=== PATIENT | female | born 1940 | race Caucasian/White ===

== ENCOUNTER 2018-03-27 10:20 | Day surgery (SDC) | payer OTHER, BC ==
[2018-03-23 12:25] VITALS: BMI 25.4
[2018-03-27] MEDS ORDERED: PROPOFOL 20 ML ONE ×2 (11:39)
[2018-03-27 12:54] VITALS: TEMP 97.7
[2018-03-27 13:16] VITALS: BP 102/54; PULSE 62
== END 2018-03-27 13:20 | disposition home or self-care (01) ==
LOC: FASU-ENDO 10:20
PROVIDERS: ATTEND Internal Medicine Gastroenterology
PROC: 0DJD8ZZ Inspection of Lower Intestinal Tract, Via Natural or Artificial Opening Endoscopic (ICD-10-PCS; principal; 2018-03-27 12:11)
DX: Z12.11 Encounter for screening for malignant neoplasm of colon (principal); K57.30 Diverticulosis of large intestine without perforation or abscess without bleeding; Z98.0 Intestinal bypass and anastomosis status; K64.4 Residual hemorrhoidal skin tags; K64.8 Other hemorrhoids

== ENCOUNTER 2018-06-25 13:01 | Emergency (ER) | payer OTHER, BC ==
[2018-06-25 13:22] VITALS: TEMP 98.3
[2018-06-25 13:27] VITALS: BP 127/74; PULSE 65; BMI 24.5
[2018-06-25 13:57] LABS: BASO % 0.8 % (0-2.0); EOS % 3.9 % (0-4.5); HEMATOCRIT 42.8 % (32.4-45.2); HEMOGLOBIN 14.2 GM/dl (10.7-15.3); LYMPH % 27.9 % (8-40); MCH 29.7 pg (25.7-33.7); MCHC 33.3 g/dl (32.0-36.0); MEAN CELL VOLUME 89.1 fl (80-96); MEAN PLT VOLUME 9.1 fl (7.5-11.1); MONO % 8.6 % (3.8-10.2); NEUT % 58.8 % (42.8-82.8); PLATELET COUNT 217 K/MM3 (134-434); WHITE BLOOD COUNT 7.2 K/mm3 (4.0-10.8)
[2018-06-25 14:11] LABS: ALBUMIN 3.9 g/dl (3.5-5.0); ALK PHOS 95 U/L (32-92); ANION GAP 8 MMOL/L (8-16); BILIRUBIN,TOTAL 0.4 mg/dl (0.2-1.0); BLOOD UREA NITROGEN 20 mg/dl (7-18); CHLORIDE 101 mmol/L (98-107); CO2 28 mmol/L (22-28); CREATININE 0.9 mg/dl (0.6-1.3); GLUCOSE,RANDOM 95 mg/dl (74-106); POTASSIUM 3.8 mmol/L (3.5-5.1); SGOT/AST 53 U/L (10-42); SGPT/ALT 39 U/L (10-40); SODIUM 137 mmol/L (136-145); TOT PROT 6.7 g/dl (6.4-8.3)
--- NOTE | 2018-06-25 15:13 | PDOC ---
History of Present Illness - General Chief Complaint: Pain Stated Complaint: RIGHT LEG/FOOT PAIN History Source: Patient Exam Limitations: No Limitations - History of Present Illness Initial Comments: 06/25/18 15:09 78 yo F with h/o pacer, ( complicated by ptx, and scarring to rib ) htn gout here today c/o right ankle pain and swelling. pt stated started in ankle joint, then spread up leg. denies f/c no cut. no h/o pe or dvt. does report intermittent chest pain which she attributes to her scarring from a chest tube after iatrogenic ptx many years ago. states chest pain is worse with lying on her left side. no sob. no travel. went to urgent care and was sent to ed for evaluation. Past History - Past Medical History Allergies/Adverse Reactions: Allergies Allergy/AdvReac Type Severity Reaction Status Date / Time amoxicillin [Amoxicillin] Allergy Verified 06/25/18 13:07 bimatoprost [From Lumigan] Allergy Verified 06/25/18 13:07 levofloxacin [From Levaquin] Allergy Verified 06/25/18 13:07 metoclopramide HCl Allergy Verified 06/25/18 13:07 [From Reglan] nabumetone [From Relafen] Allergy Angioedema Verified 06/25/18 13:07 omeprazole Allergy Verified 06/25/18 13:07 pantoprazole sodium Allergy Verified 06/25/18 13:07 [From Protonix] Sulfa (Sulfonamide Allergy Verified 06/25/18 13:07 Antibiotics) famotidine [From Pepcid] AdvReac Severe Itching Verified 06/25/18 13:07 segrid Allergy nausea Uncoded 06/25/18 13:07 Home Medications: Ambulatory Orders RX: Cyclosporine [Restasis] 1 each OU BID 02/05/13 RX: Brinzolamide/Brimonidine Tart [Simbrinza 1%-0.2% Eye Drops] 8 ml OS BID 06/19 RX: Aspirin [Aspir 81] 81 mg PO TIW 03/17/15 RX: Red Yeast Rice Extract [Red Yeast Rice] 600 mg PO QOD capsule 04/22/17 RX: Ranitidine HCl [Zantac] 150 mg PO DAILY PRN 03/23/18 Atenolol [Tenormin] 12.5 mg PO BID 06/25/18 RX: Clindamycin [Cleocin -] 300 mg PO TID #21 capsule MDD 3 06/25/18 Anemia: No Asthma: No Cancer: No Cardiac Disorders: Yes (? ATRIAL FIB,SVT? PACEMAKER X 10 YEARS) CVA: No COPD: No CHF: No Dementia: No Diabetes: No GI Disorders: Yes (DIVERTICULITIS --RESECTION 2000) Disorders: No HTN: No Hypercholesterolemia: Yes (ON RED YEAST RICE,CAN'T TAKE LIPITOR) Liver Disease: No Seizures: No Thyroid Disease: No - Surgical History Abdominal Surgery: Yes (COLON RESECTION 2000) Appendectomy: No Cardiac Surgery: No Cholecystectomy: No Lung Surgery: No Neurologic Surgery: No Orthopedic Surgery: No - Immunization History Immunization Up to Date: Yes - Suicide/Smoking/Psychosocial Hx Smoking History: Never smoked Have you smoked in the past 12 months: No Hx Alcohol Use: No Drug/Substance Use Hx: No Substance Use Type: None Hx Substance Use Treatment: No Review of Systems - Review of Systems Constitutional: No: Chills, Diaphoresis, Fever Respiratory: No: Orthopnea, Shortness of Breath Cardiac (ROS): Yes: Chest Pain Musculoskeletal: Yes: Joint Pain, Joint Swelling Integumentary: No: Bruising, Change in Color Neurological: No: Headache, Numbness All Other Systems: Reviewed and Negative *Physical Exam - Vital Signs Last Vital Signs Temp Pulse Resp BP Pulse Ox 98.3 F 65 16 127/74 100 06/25/18 13:03 06/25/18 13:03 06/25/18 13:03 06/25/18 13:03 06/25/18 13:03 - Physical Exam Comments: 06/25/18 15:11 awake alert lung clear bilaterally anterior chest wall ttp. no step off, no creitus. no bruising. heart rrr no mrg abd soft nt nd. ext wwp. right lower ext ankle mild erythema medial ankle, and 2 in up calf. ttp. foot 2 + dp/ pt pulses bilaterally. skin otherwise warm and dry. nadya dunbar oriented x 3 ED Treatment Course - LABORATORY CBC & Chemistry Diagram: 06/25/18 13:40 06/25/18 13:40 - ADDITIONAL ORDERS Additional order review: Laboratory Results 06/25/18 06/25/18 13:40 13:40 Sodium 137 Potassium 3.8 Chloride 101 Carbon Dioxide 28 Anion Gap 8 BUN 20 H Creatinine 0.9 Creat Clearance w eGFR > 60 Random Glucose 95 Calcium 9.0 Total Bilirubin 0.4 AST 53 H ALT 39 Alkaline Phosphatase 95 H Troponin I < 0.03 Total Protein 6.7 Albumin 3.9 06/25/18 13:40 RBC 4.80 MCV 89.1 MCHC 33.3 RDW 13.0 MPV 9.1 Neutrophils % 58.8 Lymphocytes % 27.9 Monocytes % 8.6 Eosinophils % 3.9 Basophils % 0.8 - RADIOLOGY Radiology Studies Ordered: Category Date Time Status CHEST PA & LAT [RAD] Stat Radiology 06/25/18 13:28 Completed DUPLEX VASCUL US-1 LEG [US] Stat Ultrasound 06/25/18 13:30 Taken Medical Decision Making - Medical Decision Making 06/25/18 15:12 78 yo F h/o pacer, gout, here with right leg swelling pain. differential dvt, cellultis, gout. plan doppler, r/o dvt. good pulses in foot. cxr and labs including ekg torp due to c/o chest pain. althought reproducible chest tenderness. *DC/Admit/Observation/Transfer Diagnosis at time of Disposition: Cellulitis, Gout - Discharge Dispostion Disposition: HOME Condition at time of disposition: Improved - Prescriptions Prescriptions: RX: Clindamycin [Cleocin -] 300 mg PO TID #21 capsule MDD 3 - Referrals Referrals: Torsten Sanchez MD [Primary Care Provider] - - Patient Instructions Printed Discharge Instructions: Gout, Cellulitis Additional Instructions: you can take clindamycin 300 mg three times daily x 7 days. you can also take naproxen 500 mg twice daily as needed for pain in your ankle. any shortness of breath, fever worseing pain or redness return for repeat evalation. you ultrasound is negative for a blood clot in your right leg. your chest xray is normal. all blood test are normal including negative test for heart attack, and normal electrolytes and kidney function. 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 please call to schedule. - Post Discharge Activity
[2018-06-25] MEDS ORDERED: CLINDAMYCIN HCL 300 MG CAPSULE PO ONE (15:27)
[2018-06-25] MEDS ORDERED: predniSONE 20 MG TABLET (UD) PO ONE (15:27)
[2018-06-25] MEDS ORDERED: predniSONE 20 MG TABLET (UD) ONE (15:47)
[2018-06-25] MEDS ORDERED: CLINDAMYCIN HCL 150 MG CAPSULE (FP) ONE (15:47)
--- NOTE | 2018-06-26 21:32 | EKG ---
Test Reason : Blood Pressure : / mmHG Vent. Rate : 062 BPM Atrial Rate : 062 BPM P-R Int : 216 ms QRS Dur : 086 ms QT Int : 422 ms P-R-T Axes : 096 005 022 degrees QTc Int : 428 ms Atrial-paced rhythm with prolonged AV conduction LOW VOLTAGE QRS CANNOT RULE OUT INFERIOR INFARCT , AGE UNDETERMINED CANNOT RULE OUT ANTERIOR INFARCT , AGE UNDETERMINED ABNORMAL ECG NO PREVIOUS ECGS AVAILABLE Confirmed by RICHIE PIKE, MARLYN ([id number]) on 06/26/2018 9:32:30 PM Referred By: MARCIA Confirmed By:MARLYN QUIROZ MD
== END 2018-06-25 16:00 | disposition home or self-care (01) ==
LOC: FER 13:01
DX: M10.9 Gout, unspecified (principal); L03.116 Cellulitis of left lower limb; I48.91 Unspecified atrial fibrillation
CPT/HCPCS: 36415; 71046-TC-FY; 80053; 84484; 85025; 93005; 93971-TC; 99283-25

== ENCOUNTER 2024-09-13 11:43 | Inpatient (IN) | payer OTHER, BC ==
[2024-09-13] MEDS ORDERED: methylPREDNISolone NA SUCC 125 MG/2 ML VIAL ONE (12:53)
[2024-09-13] MEDS ORDERED: ALBUTEROL SO4 2.5/IPRATROPIUM 0.5 INH SOL 3 ML VIAL.NEB. NEB ONE (12:53)
[2024-09-13] MEDS: methylPREDNISolone NA SUCC 125 MG/2 ML VIAL IVPB ONE (12:55)
[2024-09-13] MEDS: ALBUTEROL SO4 2.5/IPRATROPIUM 0.5 INH SOL 3 ML VIAL.NEB. NEB SCH (12:55)
[2024-09-13 13:24] LABS: HEMOGLOBIN 16.7 G/dL (10.7-15.3); MCH 29.6 pg (25.7-33.7); MCHC 33.5 g/dl (32.0-36.0); MEAN CELL VOLUME 88.3 fl (80-96); MEAN PLT VOLUME 9.1 fl (7.5-11.1); PLATELET COUNT 256.3 10^3/uL (134-434); RBC 5.66 10^6/uL (3.60-5.2); RDW 14.8 % (11.6-15.6); WHITE BLOOD COUNT 10.4 10^3/uL (4.0-10.8)
[2024-09-13 13:28] LABS: ALBUMIN 4.6 g/dl (3.4-5.0); ALK PHOS 82 U/L (45-117); ANION GAP 12 mmol/L (4-13); BILIRUBIN,TOTAL 0.7 mg/dl (0.2-1); CALCIUM 10.1 mg/dl (8.5-10.1); CHLORIDE 98 mmol/L (98-107); CO2 26 mmol/L (21-32); GLUCOSE,RANDOM 111 mg/dl (74-106); POTASSIUM 4.1 mmol/L (3.5-5.1); SGOT/AST 24 U/L (15-37); SGPT/ALT 21 U/L (7-52); SODIUM 136 mmol/L (136-145); TOT PROT 6.8 g/dl (6.4-8.2)
[2024-09-13 13:51] LABS: PLATELET ESTIMATE ADEQUATE
[2024-09-13] MEDS ORDERED: DOXYCYCLINE HYCLATE 100 MG VIAL ONE (14:39)
[2024-09-13] MEDS: DOXYCYCLINE INJECTION 100 MG in DEXTROSE 5%-WATER 100 ML IVPB ONE (14:40)
[2024-09-13 14:50] LABS: N-TERMINAL BNP 201.7 pg/ml (5-450)
[2024-09-13 15:35] LABS: HIV INTERPRETATION NEGATIVE (NEGATIVE)
[2024-09-13] MEDS: APIXABAN 5 MG TABLET PO SCH (21:59)
[2024-09-13] MEDS: DORZOLAMIDE 2% HCL OPHTHALMIC SOLUTION 10 ML BOTTLE OS SCH (21:59)
[2024-09-13] MEDS: BRIMONIDINE TARTRATE 0.2% OPHTHALMIC 5 ML BOTTLE OS SCH (21:59)
[2024-09-13] MEDS: ATENOLOL 25 MG TABLET (FP) PO SCH (21:59)
[2024-09-13] MEDS ORDERED: PATIENT'S OWN MEDICATION (NON-FORMULARY) (Brinzolamide/Brimonidine Tart [Simbrinza 1%-0.2% OS SCH (22:00)
[2024-09-13] MEDS: MELATONIN 5 MG TABLETS PO PRN (23:50)
[2024-09-13] MEDS: ACETAMINOPHEN 500 MG TABLET (FP) PO ONE (23:50)
[2024-09-14 07:42] LABS: HEMOGLOBIN 15.7 G/dL (10.7-15.3); MCH 29.3 pg (25.7-33.7); MCHC 33.4 g/dl (32.0-36.0); MEAN CELL VOLUME 87.7 fl (80-96); MEAN PLT VOLUME 8.9 fl (7.5-11.1); PLATELET COUNT 253.5 10^3/uL (134-434); RBC 5.36 10^6/uL (3.60-5.2); RDW 14.8 % (11.6-15.6); WHITE BLOOD COUNT 11.5 10^3/uL (4.0-10.8)
[2024-09-14 08:54] LABS: CALCIUM 9.6 mg/dl (8.5-10.1); CREATININE 0.9 mg/dl (0.6-1.3); POTASSIUM 4.1 mmol/L (3.5-5.1)
[2024-09-14] MEDS: methylPREDNISolone NA SUCC 40 MG/1 ML VIAL IVPUSH SCH (09:27)
[2024-09-14] MEDS: ALBUTEROL SO4 2.5/IPRATROPIUM 0.5 INH SOL 3 ML VIAL.NEB. NEB PRN (09:34)
[2024-09-14] MEDS ORDERED: methylPREDNISolone NA SUCC 40 MG/1 ML VIAL IVPUSH SCH (10:00)
[2024-09-14] MEDS: AZTREONAM 1 GM in DEXTROSE 5%-WATER - 50 ML IVPB SCH (17:37)
[2024-09-14] MEDS: AZITHROMYCIN IVPB 250 MG in DEXTROSE 5%-WATER - 250 ML IVPB SCH (18:25)
[2024-09-14] MEDS: BUDESONIDE/FORMETEROL FUMARATE 80/4.5 mcg INHALER IH SCH (21:39)
[2024-09-14] MEDS: ACETAMINOPHEN 325 MG TABLET (FP) PO ONE (22:20)
[2024-09-15 08:22] LABS: HEMATOCRIT 46.6 % (32.4-45.2); HEMOGLOBIN 15.5 G/dL (10.7-15.3); MCH 29.8 pg (25.7-33.7); MCHC 33.3 g/dl (32.0-36.0); MEAN CELL VOLUME 89.4 fl (80-96); MEAN PLT VOLUME 9.5 fl (7.5-11.1); PLATELET COUNT 245.9 10^3/uL (134-434); RBC 5.21 10^6/uL (3.60-5.2); RDW 15.1 % (11.6-15.6); WHITE BLOOD COUNT 17.1 10^3/uL (4.0-10.8)
[2024-09-15 08:48] LABS: CALCIUM 9.6 mg/dl (8.5-10.1); CREATININE 0.9 mg/dl (0.6-1.3)
[2024-09-15] MEDS: methylPREDNISolone NA SUCC 40 MG/1 ML VIAL IVPUSH SCH (10:19)
[2024-09-15] MEDS ORDERED: BENZOCAINE/MENTH/CETYLPYRD CL 1 EACH LOZENGE MM PRN (16:38)
[2024-09-15] MEDS: POLYETHYLENE GLYCOL (HEALTHYLAX) 3350 17 GM PACKET PO PRN (19:08)
[2024-09-15 19:25] VITALS: BMI 26.9
[2024-09-15] MEDS: guaiFENesin 600 MG TABLET.ER (FP) PO SCH (21:19)
[2024-09-15] MEDS: ACETAMINOPHEN 500 MG TABLET (FP) PO PRN (21:42)
[2024-09-16 10:53] LABS: HEMATOCRIT 45.2 % (32.4-45.2); HEMOGLOBIN 15.2 G/dL (10.7-15.3); MCH 29.9 pg (25.7-33.7); MCHC 33.6 g/dl (32.0-36.0); MEAN PLT VOLUME 9.2 fl (7.5-11.1); PLATELET COUNT 193.6 10^3/uL (134-434); RBC 5.08 10^6/uL (3.60-5.2); RDW 14.6 % (11.6-15.6); WHITE BLOOD COUNT 11.8 10^3/uL (4.0-10.8)
[2024-09-16 11:03] LABS: BILIRUBIN,TOTAL 0.8 mg/dl (0.2-1); CALCIUM 9.4 mg/dl (8.5-10.1); CREATININE 0.9 mg/dl (0.6-1.3); POTASSIUM 3.9 mmol/L (3.5-5.1); TOT PROT 6.2 g/dl (6.4-8.2)
[2024-09-16 12:24] LABS: PLATELET ESTIMATE ADEQUATE
[2024-09-16] MEDS: ACETYLCYSTEINE 20% 200MG/ML 4 ML VIAL *FOR ORAL / INH USE ONLY NEB SCH (17:08)
[2024-09-16] MEDS: ALBUTEROL SO4 0.083% IH SOL 2.5 MG/3 ML VIAL.NEB. NEB SCH (17:08)
[2024-09-16] MEDS: SODIUM CHLORIDE NASAL SPRAY 44 ML BOTTLE NS PRN (17:10)
[2024-09-17] MEDS ORDERED: BENZOCAINE/MENTHOL (CHLORASEPTIC ) LOZENGE MM PRN (07:54)
[2024-09-17 15:01] VITALS: BP 151/72; PULSE 80; RESP 20; TEMP 97.9
== END 2024-09-17 16:24 | disposition home or self-care (01) | DRG 194 ==
LOC: FER 11:43 → FM/S 13:50 → OBSVTOIN 09-14 14:00
PROVIDERS: ADMIT Internal Medicine; ATTEND Internal Medicine
DX: J18.9 Pneumonia, unspecified organism (principal); J21.0 Acute bronchiolitis due to respiratory syncytial virus; I24.9 Acute ischemic heart disease, unspecified; J44.1 Chronic obstructive pulmonary disease with (acute) exacerbation; J98.11 Atelectasis; I10 Essential (primary) hypertension; H40.9 Unspecified glaucoma; R09.02 Hypoxemia
CPT/HCPCS: 0241U-QW; 36415; 71046-TC-FY; 71250-TC; 80048; 80053; 83735; 83880; 84484; 85025; 85027; 86803; 87389; 93005; 94640; 99285-25; G0378